=== PATIENT | male | born 1985 | race Caucasian/White ===

== ENCOUNTER 2016-06-26 19:41 | Emergency (ER) | payer OTHER ==
[2016-06-26 18:12] LABS: INFLUENZA A POS (NEG); INFLUENZA B NEG (NEG)
== END 2016-06-26 19:44 | disposition home or self-care (01) ==
LOC: CFTX 19:41
DX: J10.1 Influenza due to other identified influenza virus with other respiratory manifestations (principal); F17.210 Nicotine dependence, cigarettes, uncomplicated
CPT/HCPCS: 87651; 87804; 99282